=== PATIENT | female | born 1985 | race Caucasian/White ===

== ENCOUNTER 2025-03-04 08:59 | Outpatient (CLI) | payer BC, OTHER | END 2025-03-04 09:00 | disposition home or self-care (01) | LOC: CSHSLEEP 08:59 | PROVIDERS: ATTEND Student in an Organized Health Care Education/Training Program | DX: G47.33 Obstructive sleep apnea (adult) (pediatric) (principal); F32.A Depression, unspecified; F41.9 Anxiety disorder, unspecified; E66.9 Obesity, unspecified; Z68.30 Body mass index [BMI] 30.0-30.9, adult | CPT/HCPCS: 95810 ==